=== PATIENT | male | born 1945 | race Caucasian/White ===

== ENCOUNTER 2025-04-18 06:43 | Observation (INO) | payer MEDICARE, SELFPAY ==
[2025-04-18] VITALS (17 sets, daily range): BP systolic 99–175; BP diastolic 65–84; PULSE 69–115; RESP 14–26; TEMP 36.6–38.6; O2SAT 92–99; BMI 25.8
--- NOTE | 2025-04-18 | ECG_ITS ---
Test Reason : WEAKNESS Blood Pressure : */* mmHG Vent. Rate : 117 BPM Atrial Rate : 98 BPM P-R Int : 246 ms QRS Dur : 54 ms QT Int : 270 ms P-R-T Axes : 212 47 135 degrees QTcB Int : 376 ms Poor data quality Abnormal ECG When compared with ECG of 18-Mar-2010 13:41, Poor data quality in current ECG precludes serial comparison Repeat EKG Referred By: Generic ED Physician Electronically Signed By: MARITO BARTH MD
--- NOTE | 2025-04-18 | ECG_ITS ---
Test Reason : REPEAT Blood Pressure : */* mmHG Vent. Rate : 82 BPM Atrial Rate : 82 BPM P-R Int : 126 ms QRS Dur : 82 ms QT Int : 362 ms P-R-T Axes : * -29 -10 degrees QTcB Int : 422 ms Sinus rhythm with occasional Premature ventricular complexes Inferior infarct , age undetermined Nonspecific ST abnormality Abnormal ECG When compared with ECG of 18-Apr-2025 07:13, Serial comparison not possible due to poor quality of prior EKG Referred By: Ferny Fernández Electronically Signed By: MARITO BARTH MD
--- NOTE | ~2025-04-18 | XR_ITS ---
EXAMINATION: XR CHEST CLINICAL INFORMATION: COVID-19 infection COMPARISON: None available. TECHNIQUE: Frontal view of the chest was obtained. FINDINGS: There are coarse lung markings. Lungs are grossly clear otherwise. The left hilum is mildly prominent. The trachea bows to the right. Heart size is within normal limits. There is focal calcific density cephalad to the right glenoid. There is a anchor in the lateral right humeral head likely from rotator cuff repair. There are moderate degenerative changes in bilateral AC joints and left shoulder. XR/XR chest 1V IMPRESSION: The left hilum appears prominent and the trachea is bowed toward the right. Consider CT chest to evaluate. Degenerative changes in the left shoulder and bilateral AC joints. Electronically signed by: Cosmo Hou MD 04/18/2025 03:59 PM [facility]
--- NOTE | ~2025-04-18 | MR_ITS ---
EXAMINATION: MR BRAIN WITHOUT IV CONTRAST HISTORY: left-sided weakness, R/O acute stroke TECHNIQUE: Sagittal T1, and axial T1, FLAIR, T2, gradient echo, and diffusion weighted MR images of the brain were obtained. COMPARISON: Correlation is made with an unenhanced head CT performed earlier in the day. FINDINGS: The pituitary is normal in size. The cerebellar tonsils are normally located. There is diffuse prominence of the ventricular system and cortical sulci, consistent with atrophy. Periventricular and subcortical white matter hyperintensities are noted on the FLAIR and T2-weighted images which are nonspecific, but often seen in the setting of small vessel ischemic disease. There are old lacunar infarcts of the bilateral thalami. There is no mass effect or midline shift. There are multiple foci of hemosiderin right cerebellum, brandy, the left temporal lobe, in the bilateral thalami. There is no evidence of acute intracranial hemorrhage.. There are no foci of restricted diffusion. Normal vascular flow voids are noted in the basilar and carotid arteries. There is mucosal thickening in the bilateral ethmoid sinuses. There is fluid in the bilateral mastoid air cells. MR/MR head/brain wo con IMPRESSION: 1. No evidence of an acute infarct. 2. Old lacunar infarcts of the bilateral thalami. 3. Multiple foci of hemosiderin as described, consistent with remote hemorrhages. 4. Fluid in the bilateral mastoid air cells. Electronically signed by: Hermann Soto MD 04/18/2025 03:[address] [facility]
--- NOTE | ~2025-04-18 | CT_ITS ---
EXAMINATION: CT ANGIOGRAM HEAD AND NECK CLINICAL INFORMATION: Increasing left-sided weakness COMPARISON: None available. TECHNIQUE: Noncontrast axial imaging of the head was performed. This was followed by test bolus sequences and head and neck intravenous bolus administration 70mL of Omnipaque 350. Helical imaging was performed in the axial plane from the aortic arch to the skull vertex. The data was processed at the orthopaedic technologist's workstation for generation of MIP sequences. Angled MIPs and volume rendered reformatted images were also generated at an offline 3D workstation. Stenoses are assessed in accordance with NASCET criteria unless otherwise indicated. This CT examination was performed using dose optimization techniques as appropriate, variously including the following: *Automated exposure control *Adjustment of mA and/or kV according to patient size (this includes techniques or standardized protocols for targeted exams where dose is matched to indication/reason for exam; i.e. extremities or head) *Use of iterative reconstruction technique FINDINGS: NONCONTRAST HEAD CT: There is no evidence of intracranial hemorrhage or extra-axial fluid collection. There is no mass effect, or edema. No CT evidence of acute territorial infarct. Moderate periventricular white matter hypodensities are present. Ventricles, sulci, and cisterns are normal in size and configuration for patient age. No hydrocephalus. No midline shift. No significant white matter abnormalities. The lens in the right globe is absent. No extracranial soft tissue abnormalities. Fluid mostly opacifies bilateral mastoid air cells. There are no suspicious bony abnormalities. NECK CTA: -AORTIC ARCH: Normal in caliber. Mild atheromatous calcification. Three-vessel branching pattern. -GREAT VESSEL ORIGINS: Widely patent. No stenosis. -RIGHT COMMON CAROTID ARTERY: Normal in course and caliber to the level of the bifurcation. -CERVICAL RIGHT INTERNAL CAROTID ARTERY: Mild calcific atherosclerotic disease of the carotid bulb and proximal internal carotid artery. -LEFT COMMON CAROTID ARTERY: Normal in course and caliber to the level of the bifurcation. -CERVICAL LEFT INTERNAL CAROTID ARTERY: Mild calcific atherosclerotic disease of the carotid bulb and proximal internal carotid artery. -CERVICAL RIGHT VERTEBRAL ARTERY: Codominant. Normal in course and caliber into the skull base. -CERVICAL LEFT VERTEBRAL ARTERY: Codominant. Normal in course and caliber into the skull base with multifocal atherosclerotic calcifications. OTHER, SOFT TISSUES: -No lymphadenopathy or mass. No abnormal fluid collection or soft tissue swelling. -Normal thyroid. -Imaged superior mediastinal structures normal. -Imaged lung apices clear. -Moderate degenerative disc disease and facet arthropathy is present in the cervical spine. CTA OF THE BRAIN: -INTRACRANIAL INTERNAL CAROTID ARTERIES: No focal stenosis or occlusion. There are multifocal atherosclerotic calcifications in the carotid siphons. -RIGHT ANTERIOR CEREBRAL ARTERY: Normal A1 segment. Normal arborization of the distal segments. -LEFT ANTERIOR CEREBRAL ARTERY: Normal A1 segment. Normal arborization of the distal segments. -ANTERIOR COMMUNICATING ARTERY: Intact. -RIGHT MIDDLE CEREBRAL ARTERY: There is focal atherosclerotic calcification at the origin. Normal M1 segment of the MCA without focal stenosis or occlusion. Normal bifurcation. Normal arborization of the distal segments. -LEFT MIDDLE CEREBRAL ARTERY: Normal M1 segment of the MCA without focal stenosis or occlusion. Normal bifurcation. Normal arborization of the distal segments. -RIGHT VERTEBRAL ARTERY V4: Normal in course and caliber. Normal PICA branch. -LEFT VERTEBRAL ARTERY V4: Normal in course and caliber. Normal PICA branch. -BASILAR ARTERY: Normal without focal stenosis or occlusion. Normal appearance of the proximal superior cerebellar arteries. Normal basilar tip. -RIGHT POSTERIOR CEREBRAL ARTERY: Absent P1 segment. origin of the WORKFORCE MANAGEMENT ANALYST with robust opacification of the posterior communicating artery. -LEFT POSTERIOR CEREBRAL ARTERY: The P1 segment patent. Normal opacification of the distal WORKFORCE MANAGEMENT ANALYST segments. -POSTERIOR COMMUNICATING ARTERIES: Robust in the right and smaller on the left. Normal opacification of the superior sagittal, straight, transverse, and sigmoid sinuses. No venous thrombosis. No space-occupying hemorrhage or definite evolving infarct. CT/CT angio head neck IMPRESSION: NONCONTRAST HEAD CT: No acute intracranial abnormality. Fluid opacifies bilateral mastoid air cells, correlate for signs symptoms of mastoiditis. Moderate deep white matter hypodensities are nonspecific but typically related to small vessel angiopathy. CTA NECK: No hemodynamically significant stenosis CTA HEAD: No hemodynamically significant stenosis. Dr. Fernández notified and message Read via [employer] at 10:19 am EST Electronically signed by: Cosmo Hou MD 04/18/2025 10:19 AM EST
--- NOTE | 2025-04-18 07:17 | ED_ITS ---
HPI - General Adult General Chief complaint: Weakness Stated complaint: weakness + history of stroke Time Seen by Provider: 04/18/25 07:04 Source: patient and family ( son Dr. Soler.) Mode of arrival: ambulatory Limitations: no limitations History of Present Illness ED Provider: DR. Fernández HPI narrative: 79-year-old male PMH significant for hemorrhagic stroke and left hemiparesis, patient lives home with family normally needs behavioral assistant secondary to left hemiparesis, a family member has flu like symptoms, patient brought in by his son (Dr. Soler) for evaluation of increased weakness over the past 24 hours, patient normally ambulate with a walker noticed that he can not ambulate which make the family concern of another stroke, patient found to have a fever in the emergency department. No chest pain, no abdominal pain, no back. Related Data Home Medications ?Medication ?Instructions ?Recorded ?Confirmed atorvastatin 40 mg tablet 40 mg PO DAILY 04/18/2503/28 lisinopril 20 1 tab PO DAILY 04/18/2503/28 mg-hydrochlorothiazide 12.5 mg tablet oxybutynin chloride 5 mg tablet 5 mg PO DAILY 04/18/25 04/18/25 Allergies Allergy/AdvReac Type Severity Reaction Status Date / Time No Known Allergies Allergy Verified 04/18/25 06:48 Review of Systems 2 Review of Systems: All other systems are reviewed and are negative Constitutional: Reports as per HPI and Reports no additional constitutional complaints Eyes: Reports as per HPI and Reports no additional eye complaints Reports system reviewed and no additional complaints, except as documented Cardiovascular: Reports as per HPI and Reports no additional cardiovascular complaints Respiratory: Reports as per HPI and Reports no additional respiratory complaints Gastrointestinal: Reports as per HPI and Reports no additional gastrointestinal complaints Genitourinary: Reports no additional female genitourinary complaints Musculoskeletal: Reports no additional musculoskeletal complaints Skin/Breast: Reports system reviewed and no additional complaints, except as docu Psychiatric: Reports no additional psychiatric complaints Endocrine: Reports no additional endocrine complaints Hematologic/Lymphatic: Reports no additional hematologic/lymphatic complaints Allergic/Immunologic: Reports no additional allergic/immunologic complaints Reports system reviewed and no additional complaints, except as documented and Reports Abnormal speech present PMFSH Social History Social History Smoked in Last 30 Days: No Use of substances other than those prescribed or required for medical reasons: No Advance Directives: No Advance Directives Information Provided: Yes Physical Exam ED Vital Signs: Vital Signs - 24 hr 04/18/25 06:46 04/18/25 07:10 04/18/25 07:36 Temperature 98.1 F 101.4 F H Pulse Rate 112 H 115 H 98 Respiratory Rate 20 22 H 22 H Blood Pressure 133/72 134/71 125/73 Pulse Oximetry 95 99 94 Oxygen Delivery Method Room Air Room Air Room Air 04/18/25 07:55 04/18/25 08:09 04/18/25 08:49 Temperature 99.3 F 100.8 F H Pulse Rate 91 83 69 Respiratory Rate 21 H 26 H 20 Blood Pressure 117/66 113/67 106/65 Pulse Oximetry 95 94 95 Oxygen Delivery Method Room Air Room Air Room Air 04/18/25 09:00 04/18/25 09:15 04/18/25 09:45 Temperature 99.1 F Pulse Rate 81 81 83 Respiratory Rate 22 H 21 H 26 H Blood Pressure 118/65 121/67 129/75 Pulse Oximetry 94 92 93 Oxygen Delivery Method Room Air Room Air Room Air 04/18/25 10:00 04/18/25 10:15 04/18/25 12:00 Temperature 99.3 F Pulse Rate 78 78 88 Respiratory Rate 14 18 19 Blood Pressure 133/71 124/73 99/75 Pulse Oximetry 98 95 96 Oxygen Delivery Method Room Air Room Air Room Air 04/18/25 14:40 Temperature 97.9 F Pulse Rate 78 Respiratory Rate 17 Blood Pressure 160/70 H Pulse Oximetry 97 Oxygen Delivery Method Room Air BMI result Body Mass Index 25.8 Vital signs have been reviewed and appear to be correct. Blood pressure elevated. Heart rate normal. Respiratory rate normal. Temperature normal. Oxygen saturation normal. Appearance: Alert. Oriented X3. No acute distress. Head: Normal external exam. Normocephalic. Atraumatic. No Ford signs noted. No raccoon eyes noted Eyes: PERRLA. EOMI. Conjunctiva and sclera normal. Eyelids normal. ENT: TM's Normal. Pharynx normal. Uvula midline. Moist mucous membranes. No trismus noted. No drooling noted. No muffled voice noted. Neck: Normal inspection. Neck supple. FROM. No adenopathy. Thyroid Normal. No meningeal signs. No neck mass noted. CVS: Normal heart rate and rhythm. Heart sound normal. No murmurs noted. Pulses normal throughout. Respiratory: No respiratory distress. Painless inspiration. Breath sounds normal. No wheezes/rales/rhonchi noted. Chest nontender. No accessory muscle usage noted or decreased air movement noted. Abdomen: Soft and nontender. Bowel sounds normal in all 4 quadrants. No distention noted. No organomegaly noted. No visible injury noted. Back: No CVA tenderness. Full range of motion noted. Skin: Skin warm and dry. Normal skin color. Normal skin turgor. No rashes/lesions/lacerations noted. Extremities: No lower extremity edema. Extremities exhibit normal range of motion. Extremities nontender. Neuro: Oriented X 3. Cranial nerve exam: II-XII are grossly intact +Pre-existing mild left hemiparesis. Course Reevaluation(s) Reevaluation #1: 79-year-old male with hemorrhagic stroke and left hemiparesis patient was brought in by family for a concern of increased left-sided weakness and another stroke, patient is positive for COVID-19 infection, otherwise hemodynamically stable no hypoxia, Neuro exam showing left hemiparesis would seem to be pre-existing an old, CT/CTA head and neck for rule out stroke is unremarkable for acute large vessel occlusion, brain MRI, Signed out to Dr. Rick. Time: 16:01 Medications Administered Discontinued Medications Generic Name Dose Route Start Last Admin Trade Name Freq PRN Reason Stop Dose Admin Ceftriaxone Sodium 1 gm/ 50 mls @ 100 mls/hr 04/18/25 07:17 04/18/25 08:08 Sodium Chloride IV 04/18/25 07:46 Infused ONCE ONE Infusion Acetaminophen 1,000 mg in 100 mls @ 400 mls/hr 04/18/25 07:25 04/18/25 07:50 Ofirmev IV 04/18/25 07:39 Infused ONCE ONE Infusion Lactated Ringer's 1,000 mls @ 999 mls/hr 04/18/25 08:45 04/18/25 09:50 Lr IV 04/18/25 09:45 Infused .Q1H1M HILL Infusion Iohexol 100 ml 04/18/25 09:39 04/18/25 09:39 Iohexol 350 Mg/Ml 100 Ml Infus..Btl IV 04/18/25 09:40 70 ml ONCE ONE Administration Medical Decision Making Differential Diagnosis Differential Diagnoses: The differential diagnosis associated with the presentation includes ( hemorrhagic stroke, ischemic stroke, electrolyte derangement, severe anemia, upper respiratory infection, COVID-19 infection, pneumonia.) Admission/Observation Consideration of admission/observation: Escalation of care including admission/observation considered Lab Data MDM Lab Attestation statement: I reviewed the patient's lab results. 04/18/25 07:23 04/18/25 07:23 Labs: Lab Results 04/18/25 04/18/25 04/18/25 Range/Units 07:23 07:24 12:58 WBC 8.4 (4.8-10.8) X10*3/uL RBC 5.07 (4.60-5.80) X10*6/uL Hgb 15.1 (14.0-18.0) g/dl Hct 44.7 (42.0-52.0) % MCV 88.2 (80.0-98.0) fL MCH 29.8 (27.0-33.0) pg MCHC 33.8 (31.0-36.0) g/dl RDW 13.2 (11.0-16.0) % Plt Count 217 (160-400) X10*3/uL MPV 10.5 (9.4-12.4) fL Immature Gran % (Auto) 0.4 (0.0-0.4) % Neut % (Auto) 79.4 H (45-73) % Lymph % (Auto) 6.2 L (20-40) % [place] % (Auto) 13.5 H (2-11) % Eos % (Auto) 0.1 (0-4) % Baso % (Auto) 0.4 (0-2) % Lymph # (Auto) 0.5 L (1.2-4.9) X10*3/uL [place] # (Auto) 1.1 (0.1-1.2) X10*3/uL Eos # (Auto) 0.0 (0.0-0.4) X10*3/uL Baso # (Auto) 0.0 (0.0-0.2) X10*3/uL Abs Immat Gran (auto) 0.03 (0.00-0.03) X10*3/uL Absolute Neuts (auto) 6.6 (2.0-8.3) x10*3/uL Absolute Nucleated RBC 0.000 (0.0-0.012) X10*3/uL Nucleated RBC % (auto) 0.0 (0.0-0.2) /100WBC PT 13.1 (11.2-13.5) SEC INR 1.1 (0.9-1.1) APTT 27.3 (26.7-34.1) SEC Sodium 146 H (135-145) mmol/L Potassium 4.3 (3.3-5.1) mmol/L Chloride 112 H (96-108) mmol/L Carbon Dioxide 23 (22-29) mmol/L Anion Gap 15 (12-20) BUN 33 H (9-16) mg/dL Creatinine 1.71 H (0.5-1.4) mg/dL Estim Creat Clear Calc 33.3 Estimated GFR 39 Random Glucose 116 H (60-115) mg/dL Lactic Acid 2.0 (0.5-2.0) mmol/L Calcium 9.2 (8.4-10.2) mg/dL Magnesium 2.0 (1.6-2.6) mg/dL Total Bilirubin 0.8 (0.0-1.0) mg/dL AST 39 H (5-37) U/L ALT 26 (0-40) U/L Alkaline Phosphatase 87 (39-117) U/L Troponin I High Sens 27.8 (<3.5-35.0) ng/L Total Protein 7.1 (6.5-8.0) g/dL Albumin 4.0 (3.5-5.0) g/dL Urine Color Yellow Urine Appearance Clear Urine pH 5.5 (5.0-9.0) Ur Specific [place] >= 1.030 H (1.005-1.025) Urine Protein 30 (1+) H (Neg-Trace) mg/dL Urine Glucose (UA) Negative (Negative) mg/dL Urine Ketones Negative (Negative) mg/dL Urine Blood Moderate (2+) H (Negative) Urine Nitrite Negative (Negative) Ur Leukocyte Esterase Negative (Negative) Urine RBC 6-10 H (0-2) /HPF Urine WBC 0-5 (0-5) /HPF Ur Squamous Epith Cells 0-2 (0-2) /HPF Urine Bacteria None Seen (None Seen) Hyaline Casts 3-5 (0-2) /LPF Influenza Type A (PCR) NEGATIVE (Negative) Influenza Type B (PCR) NEGATIVE (Negative) RSV RNA Qual (PCR) NEGATIVE (Negative) SARS-CoV-2 RNA (RT-PCR) POSITIVE A (Negative) Independent Interpretation I performed an independent interpretation of an: Plain X-Ray ( Chest:The left hilum appears prominent and the trachea is bowed toward the right. Consider CT chest to evaluate. Degenerative changes in the left shoulder and bilateral AC joints.), CT Scan ( Head/neck: No large vessel occlusion, no acute stroke.) and MRI ( no evidence of an acute infarct.) Radiology Impression Discussion of test interpretation with radiology: I have reviewed the radiologist's reading. Discharge Plan Discharge Clinical Impression: COVID-19 virus infection Patient Disposition: Admitted As Inpatient Print Language: [place] Islander
[2025-04-18 07:31] LABS: MANUAL DIFF FLAG NO
[2025-04-18 07:32] LABS: Hematocrit 44.7 % (42.0-52.0); Hemoglobin 15.1 g/dl (14.0-18.0); Imm Gran Abs Auto 0.03 X10*3/uL (0.00-0.03); Imm Gran Pct Auto 0.4 % (0.0-0.4); Lymphocytes Absolute Auto 0.5 X10*3/uL (1.2-4.9); Mean Corpuscular HGB Conc 33.8 g/dl (31.0-36.0); Mean Corpuscular Hemoglobin 29.8 pg (27.0-33.0); Mean Corpuscular Volume 88.2 fL (80.0-98.0); NRBC Abs Auto 0.000 X10*3/uL (0.0-0.012); NRBC Pct Auto 0.0 /100WBC (0.0-0.2); Platelet Count 217 X10*3/uL (160-400); Red Blood Count 5.07 X10*6/uL (4.60-5.80); White Blood Count 8.4 X10*3/uL (4.8-10.8)
[2025-04-18 07:44] LABS: INTERNATIONAL NORM RATIO 1.1 (0.9-1.1); Prothrombin Time 13.1 SEC (11.2-13.5)
[2025-04-18 07:47] LABS: Partial Thromboplastin Time 27.3 SEC (26.7-34.1)
[2025-04-18 07:57] LABS: Alanine Aminotransferase 26 U/L (0-40); Albumin Level 4.0 g/dL (3.5-5.0); Alkaline Phosphatase 87 U/L (39-117); Anion Gap 15 (12-20); Aspartate Amino Transferase 39 U/L (5-37); Blood Urea Nitrogen 33 mg/dL (9-16); Calcium 9.2 mg/dL (8.4-10.2); Carbon Dioxide 23 mmol/L (22-29); Chloride 112 mmol/L (96-108); Creatinine Clr Calc Pharmacy 33.3; Estimated Glomerular Filt Rate 39; Magnesium 2.0 mg/dL (1.6-2.6); Potassium 4.3 mmol/L (3.3-5.1); Sodium 146 mmol/L (135-145); Total Protein 7.1 g/dL (6.5-8.0)
[2025-04-18 07:58] LABS: Troponin-I High Sensitivity 27.8 ng/L (<3.5-35.0)
[2025-04-18 08:10] LABS: Resp Syncy Virus RNA Qual PCR NEGATIVE (Negative); SARS COV2 PCR INHOUSE POSITIVE (Negative)
[2025-04-18] MEDS: Lactated Ringers 1,000 ML 999 ML IV (08:49)
[2025-04-18] MEDS: iohexoL 350 MG/ML 100 ML INFUS..BTL IV (09:39)
--- NOTE | 2025-04-18 12:00 | PC.NURSE ---
patient passed nursing swallow evaluation w/o difficulty. pt provided w/ gingerale per MD approval. pt continues to pend MRI to be completed at this time. plan of care ongoing. call barcenas placed within reach.
--- OUTSIDE RECORDS SUMMARY | 2025-04-18 12:34 | XMS_ITS | Clinical Summary ---
Author Organization [facility] ity Address [address] [place] [address] Care Team Providers Care General Foreman Name Role Phone Luis Enrique Ortiz MD Primary Care Provider [phone] Surgical History Surgery Date Site/Laterality Comments KIDNEY STONE SURGERY PROCEDURE:KIDNEY STONE SURGERY Social History Tobacco Use Types Packs/Day Years Used Date Smoking Tobacco: Never Assessed Sex and Gender Information Value Date Recorded Sex Assigned at Not on file Legal Sex Male 5:17 AM EST Gender Identity Not on file Sexual Orientation Not on file Plan of Treatment Health Maintenance Due Date Last Done Comments DTaP,Tdap,and Td Vaccines (1 - Tdap) 1963 Zoster Vaccines (1 of 2) 1994 RSV Immunization Adult Patients (1 - 1-dose 75+ series) 2019 Cholesterol Screening (Lipid Panel) 03/30/2022 Falls Risk Assessment 03/30/2022 Medicare Annual Wellness Visit 03/30/2022 Social Influencers of Health Screening 03/30/2022 Depression Screening 04/27/2024 COVID-19 Vaccine ( season) 2024 Influenza Vaccine (#1) 2024 2, 12/30/2019, 01/21/2019, Additional history exists Pneumococcal Vaccine: 50+ Years Completed 12/05/2018, 11/29/2017 HIB Vaccines Aged Out No longer eligi ble based on patient's age to complete this topic HPV Vaccines Aged Out No longer eligi ble based on patient's age to complete this topic Hepatitis A Vaccines Aged Out No long er eligible based on patient's age to complete this topic Hepatitis B Vaccines Aged Out No long er eligible based on patient's age to complete this topic IPV Vaccines Aged Out No longer eligi ble based on patient's age to complete this topic MMR Vaccines Aged Out No longer eligi ble based on patient's age to complete this topic Meningococcal ACWY Vaccine Aged Out N o longer eligible based on patient's age to complete this topic Meningococcal B Vaccine Aged Out No l onger eligible based on patient's age to complete this topic RSV Immunization Patients Under 20 months Aged Out No longer eligible based on patient's age to complete this topic Varicella Vaccines Aged Out No longer eligible based on patient's age to complete this topic Advance Directives Documents on File Type Date Recorded 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 Health Care Decision (hx) 02/15/2014 AD SANCHEZ DIRECTIVE Health Care Decision (hx) 02/15/2014 AD SANCHEZ DIRECTIVE Health Care Decision (hx) 02/15/2014 AD SANCHEZ DIRECTIVE Health Care Decision (hx) 02/15/2014 AD SANCHEZ DIRECTIVE Health Care Decision (hx) 02/15/2014 AD SANCHEZ DIRECTIVE Health Care Decision (hx) 02/15/2014 AD SANCHEZ DIRECTIVE Health Care Decision (hx) 02/15/2014 AD SANCHEZ DIRECTIVE Health Care Decision (hx) 02/15/2014 AD SANCHEZ DIRECTIVE Health Care Decision (hx) 02/15/2014 AD SANCHEZ DIRECTIVE Health Care Decision (hx) 02/15/2014 AD SANCHEZ DIRECTIVE Health Care Decision (hx) 02/15/2014 AD SANCHEZ DIRECTIVE Care Teams General Foreman Relationship Specialty Start Date End Date Luis Enrique Ortiz MD [address] PCP - General Internal Medicine 05/24/20
--- OUTSIDE RECORDS SUMMARY | 2025-04-18 12:34 | XMS_ITS ---
Author Name [facility] Organization Unknown Care Team Organization Name Specialty Phone Email Start Date End Da te [facility] K[facility] 11/12/2023 4 [facility] 10/03/2022 4
--- OUTSIDE RECORDS SUMMARY | 2025-04-18 12:34 | XMS_ITS | Patient Health Record ---
Author Organization [facility] [address] Address [address] [place] [address] Care Team Providers Care Rodbuster Name Role Phone ROGERS, FEI Unavailable [phone] Allergies No Known Allergies Reason For Referral No Information Medications Medication SIG (Take, Route, Frequency, Duration) Notes Start Date End Date Status oxyBUTYnin Chloride 5 MG Tablet 1 tablet Orally Twice a day Active Atorvastatin Calcium 40 MG Tablet 1 tablet Orally Once a day Active Lisinopril-hydroCHLOROthiaz ghada 20-12.5 MG Tablet 1 tablet Orally Once a day Active Social History Tobacco Use: Social History Observation Description Date Details (start date - stop date) Never Smoker NA - NA Social History Drugs/Alcohol: Social Info Question Answer Notes Alcohol Screen (Audit-C) Did you have a drink containing alcohol in the past year? No Points 0 Interpretation Negative Tobacco Use: Social Info Question Answer Notes Tobacco Use/Smoking Are you a nonsmoker Additional Details Category Social Info Options Details Drugs/Alcohol: Do you smoke marijuana? 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) Active confirmed Problem Cerebrovascular accident (105051745) Cerebrovascular accident (CVA), unspecified mechanism (I63.9) Active confirmed Problem Essential hypertension (13507804) Accelerated hypertension (I10) Active confirmed Problem Dyslipidemia (814226757) Dyslipidemia (E78.5) Active confirmed Encounters Encounter Location Date Provider Diagnosis [facility]PC [address] [facility] [address] [place] [address] 08/17/2024 FEI ROGERS Plan Of Treatment Pending Test Test Name Order Date LIPID PANEL, STANDARD 06/02/2022 COMPREHENSIVE METABOLIC PANEL 06/02/2022 CBC (INCLUDES DIFF/PLT) 06/02/2022 URINALYSIS, COMPLETE 06/02/2022 Insurance Providers Payer Name Payer Address Payer Phone Subscriber Number Group Number Insured Name Patient Relationship to Insured Coverage Start Date Coverage End Date Medicare Part B J14 [address] [place] [address] [id number] Brigido Soler Self - patient is the insured MEDEX [address] [place] [address] [phone] [id number] Brigido Soler Self - patient is the insured Medical (General) History Medical History History ICD Code hyperlipidemia hypertension high cholesterol Stroke 09/2020 Surgical History Surgery Date(Month/Year) s/p stroke
--- NOTE | 2025-04-18 12:40 | PC.NURSE ---
straight catheterization performed. 100ml of dark yellow, non-foul smelling urine noted immediately post output. specimen obtained/sent to lab.
[2025-04-18 13:05] LABS: Appearance Urine Clear; Glucose Urine UA Negative (Negative); PH 5.5 (5.0-9.0); Specific Gravity - Urine >= 1.030 (1.005-1.025); UMIC TRIGGER UACC YES
--- NOTE | 2025-04-18 15:55 | PHA.MEDREC ---
Pharmacy Consult ? Medication Reconciliation Pharmacy has completed the medication reconciliation. Confirmed medication with son, Kolby Soler. Pt takes oxybutynin 5mg daily.
--- NOTE | 2025-04-18 17:17 | P.HPHOSP_ITS ---
History of Present Illness Date of Service: 04/18/25 Chief Complaint: Weakness 79-year-old male with significant past medical history for history of hemorrhagic stroke with left hemiparesis who lives at home with his family who normally needs minimal assistance with ADLs and walks with a walker. Over the course of the last several days, son has noticed patient becomes significantly weaker to the point of almost having to lift him into a chair. He does note sick contacts at home. Son also noted some weakness in the right side which is his dominant.. Brought to the ER where chest x-ray failed to demonstrate an infiltrate; mild changes perihilar. CTA of the head and neck failed to demonstrate any abnormalities CTA of the head along with MRI failed to demonstrate any acute stroke. Patient did test positive for COVID-19 Review of Systems 2 Review of Systems: Extremely hard of hearing; unable to obtain review of systems PMFSH Social History Smoked in Last 30 Days: No Use of substances other than those prescribed or required for medical reasons: No Advance Directives: No Advance Directives Information Provided: Yes Meds Allergies Allergy/AdvReac Type Severity Reaction Status Date / Time No Known Allergies Allergy Verified 04/18/25 06:48 Active Medications: Current Medications Acetaminophen (Acetaminophen 325 Mg Tablet) 650 mg PO Q6H PRN PRN Reason: Pain, Mild 1-3,fever,headache Atorvastatin Calcium (Atorvastatin Calcium 40 Mg Tablet) 40 mg PO DAILY [place] Calcium Carbonate (Calcium Carbonate 750 Mg Tab.Chew) 750 mg PO Q4H PRN PRN Reason: Heartburn Enoxaparin Sodium (Enoxaparin Sodium 30 Mg/0.3 Ml Syringe) 30 mg SUBCUT Q24H [place] Magnesium Hydroxide (Milk Of Magnesia 30 Ml Oral.Susp) 30 ml PO DAILY PRN PRN Reason: Constipation Melatonin (Melatonin 3 Mg Tablet) 6 mg PO BEDTIME PRN PRN Reason: Insomnia Oxybutynin Chloride (Oxybutynin Chloride 5 Mg Tablet) 5 mg PO DAILY HILL Sodium Chloride (0.9 % Sodium Chloride Flush 3 Ml Syringe) 3 ml IVFLUSH QSHIFT [facility] Home Medications ?Medication ?Instructions ?Recorded ?Confirmed ?Last Taken ?Type atorvastatin 40 mg tablet 40 mg PO DAILY 04/18/2503/2804/17/25 History lisinopril 20 1 tab PO DAILY 04/18/2503/2804/17/25 History mg-hydrochlorothiazide 12.5 mg tablet oxybutynin chloride 5 mg tablet 5 mg PO DAILY 04/18/25 04/18/25 04/17/25 History Physical Exam 2 Vital Signs and Narrative: Vital Signs: Last Vital Signs Temp 97.9 F 04/18/25 16:38 Pulse 80 04/18/25 16:38 Resp 16 04/18/25 16:38 BP 141/77 H 04/18/25 16:38 Pulse Ox 93 04/18/25 16:38 O2 Del Method Room Air 04/18/25 16:38 BMI result Body Mass Index 25.8 Const: Other: Awake alert extremely hard of hearing Resp: Other: Clear to auscultation bilaterally no rales rhonchi or wheezes Cardio: Other: No S4; positive S1-S2; no S3 murmurs rubs or gallops GI: Other: Soft nontender nondistended normoactive bowel sounds Neuro: Other: Left hemiparesis Extrem: Other: No edema bilaterally Results Labs 04/18/25 07:23 04/18/25 07:23 Labs: Laboratory Results - last 24 hr 04/18/25 04/18/25 04/18/25 07:23 07:24 12:58 MCV 88.2 MCH 29.8 MCHC 33.8 RDW 13.2 Plt Count 217 MPV 10.5 Immature Gran % (Auto) 0.4 Neut % (Auto) 79.4 H Lymph % (Auto) 6.2 L [place] % (Auto) 13.5 H Eos % (Auto) 0.1 Baso % (Auto) 0.4 Lymph # (Auto) 0.5 L [place] # (Auto) 1.1 Eos # (Auto) 0.0 Baso # (Auto) 0.0 Abs Immat Gran (auto) 0.03 Absolute Neuts (auto) 6.6 Absolute Nucleated RBC 0.000 Nucleated RBC % (auto) 0.0 PT 13.1 INR 1.1 APTT 27.3 Anion Gap 15 Estim Creat Clear Calc 33.3 Estimated GFR 39 Random Glucose 116 H Lactic Acid 2.0 Calcium 9.2 Magnesium 2.0 Total Bilirubin 0.8 AST 39 H ALT 26 Alkaline Phosphatase 87 Troponin I High Sens 27.8 Total Protein 7.1 Albumin 4.0 Urine Color Yellow Urine Appearance Clear Urine pH 5.5 Ur Specific [place] >= 1.030 H Urine Protein 30 (1+) H Urine Glucose (UA) Negative Urine Ketones Negative Urine Blood Moderate (2+) H Urine Nitrite Negative Ur Leukocyte Esterase Negative Urine RBC 6-10 H Urine WBC 0-5 Ur Squamous Epith Cells 0-2 Urine Bacteria None Seen Hyaline Casts 3-5 Influenza Type A (PCR) NEGATIVE Influenza Type B (PCR) NEGATIVE RSV RNA Qual (PCR) NEGATIVE SARS-CoV-2 RNA (RT-PCR) POSITIVE A Imaging Radiologist's Impressions: Impressions Head/Neck CTA 04/18/25 09:32 IMPRESSION: NONCONTRAST HEAD CT: No acute intracranial abnormality. Fluid opacifies bilateral mastoid air cells, correlate for signs symptoms of mastoiditis. Moderate deep white matter hypodensities are nonspecific but typically related to small vessel angiopathy. CTA NECK: No hemodynamically significant stenosis CTA HEAD: No hemodynamically significant stenosis. Dr. Fernández notified and message Read via [employer] at 10:19 am EST Electronically signed by: Cosmo Hou MD 04/18/2025 10:19 AM EST RP Brain MRI 04/18/25 14:56 IMPRESSION: 1. No evidence of an acute infarct. 2. Old lacunar infarcts of the bilateral thalami. 3. Multiple foci of hemosiderin as described, consistent with remote hemorrhages. 4. Fluid in the bilateral mastoid air cells. Electronically signed by: Hermann Soto MD 04/18/2025 03:45 PM EST RP Chest X-Ray 04/18/25 15:47 IMPRESSION: The left hilum appears prominent and the trachea is bowed toward the right. Consider CT chest to evaluate. Degenerative changes in the left shoulder and bilateral AC joints. Electronically signed by: Cosmo Hou MD 04/18/2025 03:59 PM EST RP Assessment and Plan (1) Generalized weakness: Status: Acute (2) COVID-19 virus infection: Status: Acute (3) Hypertension: Qualifiers: Hypertension type: primary hypertension Qualified Code(s): I10 - Essential (primary) hypertension Status: Acute Plan 79-year-old male with a history of hemorrhagic stroke with left hemiparesis who lives at home with family in his usually requiring minimal assistance with ADLs and ambulation presents with son who states he has become profoundly weak and not able to transfer. Workup in the emergency room essentially unremarkable save positive COVID-19 1. COVID-19/generalized weakness -COVID precautions -no indication for steroids as patient is satting acceptably on room air -PT consult in a.m. -follow clinically 2. Hypertension -acceptable control on current therapies -adjust as indicated Full code Lovenox Quality Stroke Does the patient have a stroke diagnosis?: No VTE Prior VTE?: No VTE Risk Level:: Medical - moderate - high VTE Device Contraindication: Treatment Not Indicated VTE Drug Contraindication: N/A - Med Ordered
--- NOTE | 2025-04-18 17:58 | PC.NURSE ---
pt noted to be incontinent of urine. bed change completed. pericare performed. slight erythema noted to coccyx area. barrier cream applied. rectal temp obtained displaying 100.5 - prn tylenol utilized. effectiveness pending. male purewick now in place. pt turned/repositioned upright eating snacks. no difficulties in swallowing noted. pt currently pending admission. otherwise offers no complaints. plan of care ongoing. call barcenas placed within reach.
--- NOTE | 2025-04-18 19:29 | PC.NURSE ---
this RN assumed care of this pt @1900, pt noted to be sitting upright in hospital stretcher, respirations even and unlabored, no apparent distress noted, call light within reach for safety
--- NOTE | 2025-04-18 22:20 | HO.NURTONUR ---
Chief Complaint: Weakness 79-year-old male, full code, NKA, regular diet, with significant past medical history for history of hemorrhagic stroke with left hemiparesis who lives at home with his family who normally needs minimal assistance with ADLs and walks with a walker. Over the course of the last several days, son has noticed patient becomes significantly weaker to the point of almost having to lift him into a chair. He does note sick contacts at home. Son also noted some weakness in the right side which is his dominant. Brought to the ER where chest x-ray failed to demonstrate an infiltrate; mild changes perihilar. CTA of the head and neck failed to demonstrate any abnormalities CTA of the head along with MRI failed to demonstrate any acute stroke. Patient did test positive for COVID-19 Imaging: Head/Neck CTA IMPRESSION: No acute intracranial abnormality. Fluid opacifies bilateral mastoid air cells, correlate for signs symptoms of mastoiditis. Moderate deep white matter hypodensities are nonspecific but typically related to small vessel angiopathy. Brain MRI IMPRESSION: 1. No evidence of an acute infarct. 2. Old lacunar infarcts of the bilateral thalami. 3. Multiple foci of hemosiderin as described, consistent with remote hemorrhages. 4. Fluid in the bilateral mastoid air cells. Chest X-Ray IMPRESSION: The left hilum appears prominent and the trachea is bowed toward the right. Consider CT chest to evaluate. Degenerative changes in the left shoulder and bilateral AC joints. Labs: COVID+ Access; 18g to left forearm Ambulation: baseline: 1 assist w/ walker, currently bedrest pending PT Plan: -COVID precautions -PT consult in a.m.
[2025-04-19 00:51] VITALS: BP 144/79; PULSE 75; RESP 20; TEMP 38.6; O2SAT 98
[2025-04-19 05:17] LABS: MANUAL DIFF FLAG NO
[2025-04-19 05:18] LABS: Hematocrit 43.2 % (42.0-52.0); Hemoglobin 14.6 g/dl (14.0-18.0); Imm Gran Abs Auto 0.02 X10*3/uL (0.00-0.03); Imm Gran Pct Auto 0.2 % (0.0-0.4); Lymphocytes Absolute Auto 0.6 X10*3/uL (1.2-4.9); Mean Corpuscular HGB Conc 33.8 g/dl (31.0-36.0); Mean Corpuscular Hemoglobin 29.7 pg (27.0-33.0); Mean Corpuscular Volume 88.0 fL (80.0-98.0); NRBC Abs Auto 0.000 X10*3/uL (0.0-0.012); NRBC Pct Auto 0.0 /100WBC (0.0-0.2); Platelet Count 191 X10*3/uL (160-400); Red Blood Count 4.91 X10*6/uL (4.60-5.80); White Blood Count 8.0 X10*3/uL (4.8-10.8)
[2025-04-19 05:33] LABS: Alanine Aminotransferase 23 U/L (0-40); Albumin Level 3.7 g/dL (3.5-5.0); Alkaline Phosphatase 76 U/L (39-117); Anion Gap 14 (12-20); Aspartate Amino Transferase 54 U/L (5-37); Blood Urea Nitrogen 29 mg/dL (9-16); Calcium 9.2 mg/dL (8.4-10.2); Carbon Dioxide 25 mmol/L (22-29); Chloride 110 mmol/L (96-108); Creatinine Clr Calc Pharmacy 36.3; Estimated Glomerular Filt Rate 43; Potassium 3.7 mmol/L (3.3-5.1); Sodium 145 mmol/L (135-145); Total Protein 6.4 g/dL (6.5-8.0)
[2025-04-19 05:36] VITALS: BP 148/77; PULSE 85; RESP 20; TEMP 38.6; O2SAT 93
[2025-04-19 06:01] VITALS: BP 150/84; PULSE 92; RESP 18; O2SAT 86; O2SAT 88; O2SAT 94
--- NOTE | 2025-04-19 06:06 | PC.NURSE ---
patient noted to desat to 86% on RA while asleep. upon wakening/repositioning patient upright, O2 improved to 88% on RA. slight sob noted. pt placed on 1L via NC w/ good effect. RT bedside for assistance. pt otherwise in no apparent respiratory distress. vital signs otherwise stable/up to date aside from remaining febrile. unable to utilize PRN tylenol at this d/t most recent administration. will administer medication when able. pt otherwise given gingerale. offers no complaints. pending bed assignment. plan of care ongoing. call barcenas placed within reach.
[2025-04-19] MEDS: 0.9 % Sodium Chloride Flush 3 ML SYRINGE IVFLUSH ×2 (07:35)
[2025-04-19 07:43] VITALS: BP 180/95; PULSE 106; RESP 18; TEMP 38.8; O2SAT 94
--- NOTE | 2025-04-19 07:45 | PC.NURSE ---
patient remains febrile at this time via rectal temperature. prn tylenol utilized. effectiveness pending. barrier cream reapplied to coccyx. plan of care ongoing. call barcenas placed within reach.
[2025-04-19 09:01] VITALS: BP 126/65; PULSE 103; RESP 20; TEMP 38.8; O2SAT 95
--- NOTE | 2025-04-19 09:44 | MHC.CM.PN ---
Addendum entered by Lis Kowalski 04/19/25 10:26: CM received a return call from Son/Dr. Andrés Soler. Son is hoping for STR for his Father. CM explained Patient's OBSERVATION status and Son indicated that he will text Dr. Ansari. DC plan is TBD; CM has initiated and will follow foir dc planning. PCP is Dr. Kami Hooker. Original Note: CM met with Patient at bedside and addressed KEENAN with him verbally, R/T his (+) Covid Status;Patient appeared to understand but then did not respond to initial CM Assessment questions. Patient did nod that it was ok to call his Son/Andrés @ [phone]. CM awaits a return call from Son.
--- NOTE | 2025-04-19 10:48 | HO.SKINPHOTO ---
Location: Category: Stage: Length: Width: Depth: cm Location: Category: Stage: Length: Width: Depth: cm Location: Category: Stage: Length: Width: Depth: cm Location: Category: Stage: Length: Width: Depth: cm Location: Category: Stage: Length: Width: Depth: cm Location: Category: Stage: Length: Width: Depth: cm
--- NOTE | 2025-04-19 11:38 | MHC.CM.PN ---
This chart writer spoke w/ pt's son regarding discharge options @ this time. Plan for acute rehab referrals, in addition to [facility]NA referrals as secondary option. This chart writer also reached out to PT to request daily visits for PT in order to prevent any further deconditioning for patient.
[2025-04-19 11:51] VITALS: BP 171/77; PULSE 81; RESP 20; TEMP 36.7; O2SAT 92
--- NOTE | 2025-04-19 13:25 | MHC.CM.PN ---
Per MD, Patient is medically cleared for dc to Acute Rehab. Patient will dc to [facility] today at 3 PM, via [facility]. Patient and Son are aware of and in agreement with the dc plan.
--- NOTE | 2025-04-19 13:59 | PM.DS ---
DS: Providers Provider Date of admission: 04/18/25 16:31 Date of discharge: 04/19/25 Primary care physician: Kami Hooker MD Consults: 04/19/25 10:48 Consult to Wound Care Routine Consulting Provider: [facility] [place] [facility] Wound Care Management Reason for consultation: redness to buttocks area DS: Diagnosis Discharge Diagnosis (1) Generalized weakness: Status: Acute (2) COVID-19 virus infection: Status: Acute (3) Hypertension: Status: Acute DS: Summary Hospital Course Hospital Course: 79-year-old male with significant past medical history for history of hemorrhagic stroke with left hemiparesis who lives at home with his family who normally needs minimal assistance with ADLs and walks with a walker. Over the course of the last several days, son has noticed patient becomes significantly weaker to the point of almost having to lift him into a chair. He does note sick contacts at home. Son also noted some weakness in the right side which is his dominant.. Brought to the ER where chest x-ray failed to demonstrate an infiltrate; mild changes perihilar. CTA of the head and neck failed to demonstrate any abnormalities CTA of the head along with MRI failed to demonstrate any acute stroke. Patient did test positive for COVID-19 Hospital Course Patient admitted overnight on telemetry; monitor failed to demonstrate any acute dysrhythmias. Seen in consultation by Physical therapy who deemed him a candidate for rehab. At this point in time he is medically acceptable to transfer to the same Time Attestation Discharge Coordination Time (in mins): 35 Quality: Safe Use of Opioids Does Pt have an Active Cancer Diagnosis on the Problem List?: No Quality: Stroke Does the patient have a stroke diagnosis?: No Physical Exam Vital Signs: Vital Signs: Last Vital Signs Temp 98.1 F 04/19/25 11:51 Pulse 81 04/19/25 11:51 Resp 20 04/19/25 11:51 BP 171/77 H 04/19/25 11:51 Pulse Ox 92 04/19/25 11:51 O2 Del Method Room Air 04/19/25 11:51 O2 Flow Rate 1 04/19/25 09:01 BMI result Body Mass Index 25.8 Const: Other: Awake alert extremely hard of hearing Resp: Other: Clear to auscultation bilaterally no rales rhonchi or wheezes Cardio: Other: No S4; positive S1-S2; no S3 murmurs rubs or gallops GI: Other: Soft nontender nondistended normoactive bowel sounds Neuro: Other: Left hemiparesis Extrem: Other: No edema bilaterally DS: Data Data Completed and Pending Labs on day of discharge: Laboratory Results - last 24 hr 04/19/25 04:58 WBC 8.0 RBC 4.91 Hgb 14.6 Hct 43.2 MCV 88.0 MCH 29.7 MCHC 33.8 RDW 13.0 Plt Count 191 MPV 10.5 Immature Gran % (Auto) 0.2 Neut % (Auto) 80.6 H Lymph % (Auto) 8.0 L [place] % (Auto) 11.0 Eos % (Auto) 0.0 Baso % (Auto) 0.2 Lymph # (Auto) 0.6 L [place] # (Auto) 0.9 Eos # (Auto) 0.0 Baso # (Auto) 0.0 Abs Immat Gran (auto) 0.02 Absolute Neuts (auto) 6.5 Absolute Nucleated RBC 0.000 Nucleated RBC % (auto) 0.0 Sodium 145 Potassium 3.7 Chloride 110 H Carbon Dioxide 25 Anion Gap 14 BUN 29 H Creatinine 1.57 H Estim Creat Clear Calc 36.3 Estimated GFR 43 Fasting Glucose 101 H Calcium 9.2 Total Bilirubin 0.8 AST 54 H ALT 23 Alkaline Phosphatase 76 Total Protein 6.4 L Albumin 3.7 Preliminary micro results at discharge 04/18/25 07:34 Blood Culture - Preliminary Blood - Venous No growth after 24 hours. 04/18/25 07:24 Blood Culture - Preliminary Blood - Venous No growth after 24 hours. Discharge Plan Discharge Anticipated Discharge Date/Time: 04/19/25 13:57 Patient Disposition: Xfer Inpatient Rehab Fac Discharge Diagnosis: Generalized weakness [facility] - 1 Week Kami Hooker MD [Primary Care Provider, Internal Medicine] Discharge Medications: Continued atorvastatin 40 mg tablet 40 mg PO DAILY lisinopril-hydrochlorothiazide 20-12.5 mg tablet 1 tab PO DAILY oxybutynin chloride 5 mg tablet 5 mg PO DAILY Discharge Orders: Discharge Order (Routine); Ordered 04/19/25 Ordered By: Michael Ansari Diet: Advance to usual diet Activity on Discharge: As tolerated Stand Alone Forms: Patient Portal Discharge page Print Language: Faroese Care Plan Goals: Continue all medicines as outlined on transfer sheet Health Concerns: Physical therapy as indicated Plan of Treatment: As per receiving facility Assessment: See discharge summary Patient Instructions: COVID-19 and Chronic Health Conditions (ED)
== END 2025-04-19 15:28 ==
LOC: HO.ED 16:17 → HO.EDOVER 16:39 → HO.IMC 04-19 08:44
PROVIDERS: Admitting Provider Hospitalist; Emergency Provider Emergency Medicine; PCP Internal Medicine Nephrology; Visit Provider Hospitalist
DX: R53.1 Weakness (principal); U07.1 COVID-19; I10 Essential (primary) hypertension; R94.31 Abnormal electrocardiogram [ECG] [EKG]; R50.9 Fever, unspecified; I69.354 Hemiplegia and hemiparesis following cerebral infarction affecting left non-dominant side; Z79.899 Other long term (current) drug therapy
CPT/HCPCS: 36415; 70496; 70498; 70551; 71045; 80053; 81001; 83605; 83735; 84484; 85025; 85610; 85730; 87040; 87637; 93005; 96361; 96365; 96372; 96375; 97162; 99222; 99285; J0131; J0696; J1650; J7120; Q9967

== ENCOUNTER → 2025-04-18 07:09 | Outpatient (BNV) | payer MEDICARE, SELFPAY | PROVIDERS: Emergency Provider Emergency Medicine; Visit Provider Radiology Diagnostic Radiology | DX: R53.1 Weakness (principal); U07.1 COVID-19; M19.012 Primary osteoarthritis, left shoulder; M19.011 Primary osteoarthritis, right shoulder | CPT/HCPCS: 70551 ==

== ENCOUNTER → 2025-04-18 07:13 | Outpatient (BNV) | payer MEDICARE, SELFPAY | PROVIDERS: Emergency Provider Emergency Medicine; Visit Provider Internal Medicine Cardiovascular Disease | DX: R94.31 Abnormal electrocardiogram [ECG] [EKG] (principal); Z13.6 Encounter for screening for cardiovascular disorders; R53.1 Weakness | CPT/HCPCS: 93010 ==

== ENCOUNTER → 2025-04-18 16:31 | Outpatient (BNV) | payer MEDICARE, SELFPAY | PROVIDERS: Admitting Provider Hospitalist; Emergency Provider Emergency Medicine; PCP Internal Medicine Nephrology; Visit Provider Hospitalist | DX: U07.1 COVID-19 (principal); I10 Essential (primary) hypertension; R53.1 Weakness | CPT/HCPCS: 99222; 99239 ==